=== PATIENT | male | born 1950 | race African-American/Black ===

== ENCOUNTER 2017-03-02 14:48 | Emergency (ER) | payer SELFPAY ==
[~2017-03-02] VITALS: Ht 175.3 cm; Wt 82.6 kg
--- NOTE | 2017-03-02 15:18 | NUR ---
PT IS IN ROOM #2A. DR WEST EVALUATED THE PT.
[2017-03-02] MEDS ORDERED: HYDROCODONE/APAP 5-325MG TABLET PO ONE (16:25)
[2017-03-02] MEDS ORDERED: IBUPROFEN 800 MG TABLET PO ONE (16:30)
--- NOTE | 2017-03-02 16:38 | NUR ---
PT WAS D/C TO HOME. D/C INSTRUCTIONS GIVEN TO THE PT.
[2017-03-02 16:41] VITALS: BP 146/81
[2017-03-02] MEDS ORDERED: HYDROCODONE/APAP 5-325MG TABLET ONE (16:46)
[2017-03-02] MEDS ORDERED: IBUPROFEN 800 MG TABLET ONE (16:47)
== END 2017-03-02 16:41 | disposition home or self-care (01) ==
LOC: ER 14:48
DX: S60.221A Contusion of right hand, initial encounter (principal); S80.02XA Contusion of left knee, initial encounter; W18.30XA Fall on same level, unspecified, initial encounter; Y93.89 Activity, other specified; Y92.481 Parking lot as the place of occurrence of the external cause; Y99.9 Unspecified external cause status
CPT/HCPCS: 73130; 73564; 99284; A4663